=== PATIENT | male | born 1950 | race Caucasian/White ===

== ENCOUNTER → 2021-04-19 | Outpatient (CLI) | payer BC ==
[~2021-04-19] MED LIST: ASPI81CH PO; DICMIS75EC PO; Flomax0.4 MG PO; LIVALO2 MG PO; Multiple Vitam1 EAC1 PO; OMEP20ER PO; Ocuvite Softge1 EAC1 PO; Percocet 5-3251 EACH PO; VITAMIN D35000 UNI1 PO; [UNRECOGNIZED DRUG - REMARK]
== END | disposition home or self-care (01) ==
LOC: LAB 11:39 → LAB SHORT 11:39
DX: D22.39 Melanocytic nevi of other parts of face (principal); L57.0 Actinic keratosis; L81.4 Other melanin hyperpigmentation
CPT/HCPCS: 88305

== ENCOUNTER 2021-10-24 06:19 | Day surgery (SDC) | payer BC ==
[~2021-10-24] VITALS: Ht 170.2 cm; Wt 83.7 kg
[2021-10-24] MEDS ORDERED: MAGNESIUM OXID500 MG (06:50)
[2021-10-24] MEDS ORDERED: OLME20 (07:00)
== END 2021-10-24 08:31 | disposition home or self-care (01) ==
LOC: ORSCSDS 06:19
PROVIDERS: Orthopaedic Surgery
PROC: 01N50ZZ Release Median Nerve, Open Approach (ICD-10-PCS; principal; 2021-10-24 07:30)
DX: G56.03 Carpal tunnel syndrome, bilateral upper limbs (principal); I10 Essential (primary) hypertension; Z79.82 Long term (current) use of aspirin; Z79.899 Other long term (current) drug therapy
CPT/HCPCS: J2704; J7120

== ENCOUNTER 2022-05-15 06:22 | Day surgery (SDC) | payer BC ==
[~2022-05-15] VITALS: Ht 170.2 cm; Wt 82.8 kg
[~2022-05-15 06:22] MED LIST changes: +MAGNESIUM OXID500 MG; +OLME20
--- NOTE | 2022-05-15 07:38 | NUR ---
05/15/22 0738 AMNA WISEMAN 10MLS OF LIDO 2% WITH EPI 1:100,000 INJECTED INTO L HAND BY JOSUE COLEMAN BEFORE STERILE PREP.
--- NOTE | 2022-05-15 09:07 | NUR ---
05/15/22 0907 Caldwell,Ankush LATE ENTRY, PT D/C'D AMBU TO CAR DRIVEN BY , VS WNL, ERICK LUNGS CTA ON RA O2 SAT 985, PT DENIES C/O PAIN, N/V, ANY NEEDS AT THIS TIME, PT V/U D/C INSTRUCTIONS, PERSONAL BELONGINGS GIVEN TO PT, PT DENIES DIZZINESS, AMBU STEADY TO CAR.
== END 2022-05-15 09:00 | disposition home or self-care (01) ==
LOC: ORSCSDS 06:22
PROVIDERS: Orthopaedic Surgery
PROC: 01N50ZZ Release Median Nerve, Open Approach (ICD-10-PCS; principal; 2022-05-15 07:30)
DX: G56.02 Carpal tunnel syndrome, left upper limb (principal); I10 Essential (primary) hypertension; E78.5 Hyperlipidemia, unspecified; K21.9 Gastro-esophageal reflux disease without esophagitis; I25.10 Atherosclerotic heart disease of native coronary artery without angina pectoris; Z79.899 Other long term (current) drug therapy; Z79.82 Long term (current) use of aspirin; Z85.46 Personal history of malignant neoplasm of prostate
CPT/HCPCS: J2250; J2704; J3010; J7120

== ENCOUNTER → 2022-05-29 | Outpatient (CLI) | payer BC | LOC: LAB SHORT 11:34 → PLD 11:34 | DX: L57.0 Actinic keratosis (principal) | CPT/HCPCS: 88305 ==